=== PATIENT | male | born 1970 | race Two or more races ===

== ENCOUNTER 2019-01-23 15:49 | Emergency (ER) | payer MEDICAID ==
[~2019-01-23] VITALS: Ht 170.2 cm; Wt 120.2 kg
[2019-01-23 16:24] LABS: Basophils # (auto) 0 uL; Basophils % (auto) 0.4 % (0.0-2.0); Eosinophils # (auto) 0.1 uL; Eosinophils % (auto) 1.1 % (0.0-7.0); Hematocrit 46.5 % (41.0-53.0); Hemoglobin 15.9 g/dL (13.5-17.5); Lymphocytes # (auto) 0.6 uL; Mean Corpuscular Hgb Conc. 34.2 g/dL (32.0-36.0); Mean Corpuscular Volume 93.5 fL (80.0-100.0); Monocytes # (auto) 0.4 uL; Monocytes % (auto) 5.5 % (0.0-12.0); Neutrophils # (auto) 6.7 uL; Nucleated Red Blood Cells % 0.1 %; Platelet Count (auto) 94 10^3/uL (140-450); Red Blood Cells 4.97 10^6/uL (4.5-5.90); Red Cell Distribution Width 13.1 % (11.8-14.3); White Blood Cell 7.8 10^3/uL (4.4-10.8)
[2019-01-23 16:52] LABS: Albumin 3.8 g/dL (3.4-5.0); Anion Gap 7 (5-15); Blood Urea Nitrogen 17 mg/dL (7-18); Calcium 8.4 mg/dL (8.5-10.1); Carbon Dioxide 26 mmol/L (21-32); Chloride 102 mmol/L (98-107); Glucose 393 mg/dL (74-106); Magnesium 1.6 mg/dL (1.6-2.6); Potassium 4.1 mmol/L (3.5-5.1); Sodium 135 mmol/L (136-145)
[2019-01-23 16:58] LABS: Alanine Aminotransferase 43 U/L (16-61); Alkaline Phosphatase 98 U/L (45-117); Aspartate Aminotransferase 18 U/L (15-37); Bilirubin, Total 1.3 mg/dL (0.2-1.0); GFR African American 89 mL/min; GFR Non-African American 73 mL/min; Total Protein 7.7 g/dL (6.4-8.2)
[2019-01-23] MEDS ORDERED: ONDANSETRON HCL 4 MG/2 ML VIAL ONE (20:44)
[2019-01-23] MEDS ORDERED: ONDANSETRON HCL 4 MG/2 ML VIAL IV ONE (20:45)
[2019-01-23] MEDS ORDERED: SODIUM CHLORIDE 0.9% 1,000 ML IV ONE (20:45)
[2019-01-23 21:52] LABS: Urine WBC None Seen /hpf (0 - 3)
[2019-01-23 22:01] LABS: Urine Bacteria NONE SEEN /hpf (None Seen); Urine Blood Negative /uL (Negative)
[2019-01-23] MEDS ORDERED: ASPirin-EC 81 mg tab PO ONE (22:30)
[2019-01-24] MEDS: SODIUM CHLORIDE 0.9% 1,000 ML IV ONE ×2 (00:42→00:43)
[2019-01-24] MEDS ORDERED: IOHEXOL 350 MG/ML 100ML IJ ONE (01:22)
[2019-01-24 04:51] VITALS: BP 101/59
== END 2019-01-24 04:52 | disposition home or self-care (01) ==
LOC: EDBD 15:49 → ER 15:49
DX: R07.89 Other chest pain (principal); J21.9 Acute bronchiolitis, unspecified; J01.00 Acute maxillary sinusitis, unspecified; J45.909 Unspecified asthma, uncomplicated; E11.9 Type 2 diabetes mellitus without complications; I10 Essential (primary) hypertension
CPT/HCPCS: 36415; 71045; 71275; 80053; 81001; 82010; 82962; 83735; 84484; 85025; 85379; 93005; 96361; 96374; 99284; J2405; J7030; Q9967